=== PATIENT | male | born 2000 | race African-American/Black ===

== ENCOUNTER 2022-08-22 21:47 | Emergency (ER) | payer MEDICAID ==
[~2022-08-22] VITALS: Ht 167.6 cm; Wt 55.8 kg
[2022-08-22 22:16] VITALS: BP 159/89
--- NOTE | 2022-08-22 22:28 | NUR ---
URINE GIVEN TO LAB.
[2022-08-22 22:59] LABS: APPEARANCE,URINE CLEAR (CLEAR); BILIRUBIN,URINE NEGATIVE (NEGATIVE); BLOOD, URINE NEGATIVE (NEGATIVE); COLOR,URINE YELLOW (YELLOW); LEUKOCYTE ESTERASE ,URINE NEGATIVE (NEGATIVE); NITRITE, URINE NEGATIVE (NEGATIVE); UGLUCOSE NEGATIVE (NEGATIVE)
[2022-08-22] MEDS ORDERED: CIPR500T4 PO (23:36)
[2022-08-22 23:38] VITALS: BP 159/89
--- NOTE | 2022-08-22 23:38 | NUR ---
D/C BY . PRESCRIBED CIPRO
== END 2022-08-22 23:38 | disposition home or self-care (01) ==
LOC: MED 21:47
DX: N34.2 Other urethritis (principal); E11.9 Type 2 diabetes mellitus without complications; Z79.899 Other long term (current) drug therapy
CPT/HCPCS: 81003; 99283